=== PATIENT | female | born 1960 | race African-American/Black ===

== ENCOUNTER 2017-05-19 07:22 | Emergency (ER) | payer MEDICARE, MEDICAID ==
[~2017-05-19] VITALS: Ht 172.7 cm; Wt 75.0 kg
[~2017-05-19 07:22] MED LIST: AMLO5TAB4 PO; BENA40TA66 PO; LORA-250; OMEP40CA PO; ONDA4TAB5; TAMO20TA4 PO
[2017-05-19 07:36] VITALS: BP 118/90
[2017-05-19] MEDS ORDERED: IBUPROFEN 800MG TABLET PO ONE (07:45)
== END 2017-05-19 10:49 | disposition home or self-care (01) ==
LOC: ER 08:33
DX: M25.571 Pain in right ankle and joints of right foot (principal); M79.671 Pain in right foot; I10 Essential (primary) hypertension; F41.9 Anxiety disorder, unspecified
CPT/HCPCS: 73610; 73630; 99284

== ENCOUNTER 2018-03-30 16:29 | Emergency (ER) | payer MEDICARE, OTHER ==
[~2018-03-30] VITALS: Ht 172.7 cm; Wt 73.0 kg
[2018-03-30 16:37] VITALS: BP 143/104
== END 2018-03-30 21:00 | disposition left against medical advice (07) ==
LOC: ER 16:29
DX: M54.5 Low back pain (principal); M25.552 Pain in left hip; M25.551 Pain in right hip; Z53.21 Procedure and treatment not carried out due to patient leaving prior to being seen by health care provider
CPT/HCPCS: 99281